=== PATIENT | male | born 1955 | race Caucasian/White ===

== ENCOUNTER → 2017-02-11 | Outpatient (CLI) | payer BC ==
[~2017-02-11] MED LIST: SMV20T
--- NOTE | 2017-02-11 08:43 | Diagnostic Imaging Report ---
PROCEDURE: CT urinary tract, rule out kidney stone. TECHNIQUE: Multiple contiguous axial images were obtained through the abdomen and pelvis without the use of intravenous contrast. INDICATION: Left flank pain. Hematuria. FINDINGS: The lung bases appear clear. The liver, the spleen, the gallbladder, the pancreas and the adrenal glands appear unremarkable. The abdominal aorta is normal in caliber. No paraaortic significantly enlarged lymph nodes are seen. There is a 2 mm nonobstructive stone in the mid right kidney. No hydronephrosis. The urinary bladder wall is minimally thickened. This could relate to mild cystitis or postobstructive changes. There is a tiny periumbilical fat-containing hernia. The colon demonstrates diverticulosis. No diverticulitis. The appendix is normal. The prostate is mildly enlarged at 5 cm in transverse dimension. Significant free fluid or fluid collection in the abdomen or pelvis seen. The osseous structures demonstrate mild degenerative changes in the lumbar spine and SI joints. IMPRESSION: 1. No urinary tract stones or hydronephrosis. 2. Mild urinary bladder wall thickening which could relate to cystitis or postobstructive changes. 3. Tiny fat-containing periumbilical hernia. 4. A few colonic diverticulosis. No diverticulitis. Dictated by: Dictated on workstation # [id number]
== END ==
LOC: RAD 07:39
PROVIDERS: ATTEND Family Medicine
DX: K42.9 Umbilical hernia without obstruction or gangrene (principal); K57.30 Diverticulosis of large intestine without perforation or abscess without bleeding; R31.9 Hematuria, unspecified
CPT/HCPCS: 74176

== ENCOUNTER 2020-05-26 08:50 | Emergency (ER) | payer BC, MEDICAID, MEDICARE ==
[~2020-05-26] VITALS: Ht 182 cm; Wt 101.0 kg
--- NOTE | 2020-05-26 09:38 | ED Cough/URI ---
General Chief Complaint: Cough/Cold/Flu Symptoms Stated Complaint: SAVAGE FEVER ACHES Source: patient Exam Limitations: no limitations History of Present Illness Date Seen by Provider: May 26, 2020 Time Seen by Provider: 09:30 Initial Comments Patient is a 65-year-old male who presents to the emergency department today with a chief complaint of fevers, body aches, chills, just not feeling well. Patient states that he was around his grandson over [place] who later this last week tested positive for coronavirus. Patient symptoms started on Friday the . Patient denies any loss of taste or smell. He states his cough is dry nonproductive. He has had a slight runny nose. No sore throat no earaches. No GI or symptoms but slightly decreased appetite. Patient endorses headache as well. Is concerned about developing pneumonia. Has not taken any Tylenol today. All other review of systems reviewed and negative except as stated. Timing/Duration: week Severity/Quality: dry cough Associated Symptoms: cough, fever/chills, headache, nasal drainage Allergies and Home Medications Allergies Coded Allergies: No Known Drug Allergies (Verified Allergy, Unknown, 07/05/09) Patient Home Medication List Home Medication List Reviewed: Yes Review of Systems Review of Systems Constitutional: see HPI EENTM: nose congestion Respiratory: cough Cardiovascular: no symptoms reported Gastrointestinal: no symptoms reported Genitourinary: no symptoms reported Musculoskeletal: no symptoms reported Skin: no symptoms reported All Other Systems Reviewed Negative Unless Noted: Yes Past [id number]-[id number] Hx Patient Social History Alcohol Use: Occasionally Uses Recreational Drug Use: No Smoking Status: Never a Smoker Recent Foreign Travel: No Contact w/Someone Who Travel: No Recent Hopitalizations: Yes Physical Abuse: No Sexual Abuse: No Mistreated: No Fear: No Past Medical History Surgeries: Yes (T&A,DISCECTOMY,LEFT WRIST, lumbar sx, r knee scope) Orthopedic Respiratory: Yes Sleep Apnea Cardiac: Yes High Cholesterol Neurological: No Reproductive Disorders: No Genitourinary: No Gastrointestinal: Yes Ulcer Endocrine: Yes (NODULE ON THYROID TO BE BX THIS WEEK) Psychosocial: No Integumentary: No Blood Disorders: No Physical Exam Vital Signs - First Documented 05/26/20 05/26/20 09:23 09:38 Temp 37.6 Pulse 96 Resp 18 B/P (MAP) 140/82 (101) Pulse Ox 95 O2 Delivery Room Air Capillary Refill : Height: 6'0.00" Weight: 225lbs. oz. 102.162199li; BMI Method: General Appearance: WD/WN, no apparent distress Eyes: Bilateral Eye Normal Inspection, Bilateral Eye PERRL, Bilateral Eye EOMI HEENT: PERRL/EOMI, pharynx normal, TM abnormal (R) (Effusion on the right TM) Neck: non-tender, full range of motion, supple Respiratory: lungs clear, normal breath sounds, no respiratory distress, no accessory muscle use Cardiovascular: regular rate, rhythm Gastrointestinal: non tender, soft Extremities: normal range of motion, normal inspection, normal capillary refill Neurologic/Psychiatric: no motor/sensory deficits, alert, normal mood/affect, oriented x 3 Skin: normal color, warm/dry Progress/Results/Core Measures Suspected Sepsis SIRS Temperature: Pulse: Respiratory Rate: Blood Pressure / Mean: Results/Orders Lab Results Laboratory Tests Test 05/26/20 09:35 Range/Units Coronavirus 2019 ([facility]) Positive H Negative Micro Results Microbiology 05/26/20 Influenza Types A,B Antigen ([facility]) - Final, Complete My Orders Orders - ELA SINHA MD Influenza A And B Antigens (05/26/20 09:32) Covid 19 Inhouse Test (05/26/20 09:32) Vital Signs/I&O 05/26/20 05/26/20 09:23 09:38 Temp 37.6 Pulse 96 Resp 18 B/P (MAP) 140/82 (101) Pulse Ox 95 O2 Delivery Room Air Capillary Refill : Progress Note : Time: 09:37 Progress Note 65-year-old presents with a chief complaint of viral symptoms, fevers, chills, poor appetite, headache, runny nose and dry cough. Evaluation today includes a physical exam, flu swab as well as coronavirus test. Patient is afebrile here in the emergency department. He is nontoxic-appearing. Will await this testing and potentially offer the patient the investigational use drug BAM if he is positive for Covid 1029 Discusssed the Bamlanivimab with the patient, discussed risks and benefits of this investigational use drug. Patient verbalizes understanding and wishes to be considered for treatment. Patient meets all the criteria for inclusion. Departure Impression Primary Impression: Coronavirus infection Disposition: 01 HOME, SELF-CARE Condition: Stable Departure-Patient Inst. Decision time for Depature: 10:34 Referrals: MARIBEL HARDING MD (PCP/Family) Primary Care Physician Patient Instructions: Coronavirus Disease 2019 (COVID-19) (DC) Add. Discharge Instructions: Drink lots of fluids to stay well-hydrated. Alternate Tylenol and or ibuprofen for any fevers, body aches or other symptoms. Please follow-up with your primary care doctor. We have placed an order for the Bamlanivimab; you will be contacted regarding infusion of this medication. Please come back to the emergency room if you have any worsening symptoms of shortness of breath, cough, any other emergent concerns. All discharge instructions reviewed with patient and/or family. Voiced understanding. ELA SINHA MD May 26, 2020 09:38
[2020-05-26 10:43] VITALS: BP 137/84
== END 2020-05-26 10:43 | disposition home or self-care (01) ==
LOC: EDUNIT# 08:50 → ER 08:52
DX: U07.1 COVID-19 (principal)
CPT/HCPCS: 87804; 99282; U0002; 87635

== ENCOUNTER → 2020-05-29 | Outpatient (CLI) | payer MEDICARE ==
[~2020-05-29] MED LIST changes: +BAMLANIVIMAB 700 MG in NS 200 ML IV ONE; +EPINEPHrine INJECTION 1 MG/ML AMP IM PRN; +diphenhydrAMINE 50 MG/ML INJ (BENADRYL) IV PRN
[2020-05-29 13:08] VITALS: BP 152/87
[2020-05-29 14:28] VITALS: BP 120/78
[2020-05-29 15:18] VITALS: BP 130/76
== END ==
LOC: INFUSION 12:59
PROVIDERS: ATTEND Emergency Medicine
DX: U07.1 COVID-19 (principal)

== ENCOUNTER → 2021-01-17 | Outpatient (CLI) | payer MEDICARE, OTHER ==
[~2021-01-17] VITALS: Ht 182 cm; Wt 101.0 kg
[~2021-01-17] MED LIST changes: -BAMLANIVIMAB 700 MG in NS 200 ML IV ONE; -EPINEPHrine INJECTION 1 MG/ML AMP IM PRN; -diphenhydrAMINE 50 MG/ML INJ (BENADRYL) IV PRN
[2021-01-17] MEDS: CATHETER FLUSH 10 ML SYR IV PRN (08:22)
[2021-01-17 09:14] VITALS: BP 130/83
[2021-01-17 09:32] VITALS: BP 179/77
--- NOTE | 2021-01-17 12:22 | Cardiology Stress Test Report ---
Stress Test Report Date of Procedure/Referring: Date of Procedure: Jan 17, 2021 PCP Babs Braswell MD Admitting Physician Marielos Hernández MD Indications: HTN Baseline Heart Rate: 61 Baseline Blood Pressure: Blood Pressure Systolic: 179 Blood Pressure Diastolic: 77 Vital Signs Date Time Temp Pulse Resp B/P (MAP) Pulse Ox O2 Delivery O2 Flow Rate FiO2 01/17/21 09:14 65 14 130/83 (99) 97 Room Air Baseline Vital Signs Vital Signs Date Time Temp Pulse Resp B/P (MAP) Pulse Ox O2 Delivery O2 Flow Rate FiO2 01/17/21 09:14 65 14 130/83 (99) 97 Room Air Baseline EKG: Baseline EKG: NSR Summary: After explaining the procedure and details to the patient, he signed the consent and was brought to the stress nuclear laboratory. Patient exercised on standard Juan Carlos protocol, EKG, heart rate and blood pressure were monitored continuously, resting and stress doses of radio tracer were injected, imaging was acquired and reviewed in the short axis, horizontal long axis and vertical long axis views Patient was able to exercise for a total of 10 minutes on Juan Carlos protocol, METs 11.7 Maximum heart rate 152 Maximum blood pressure 206/74 Stress EKG, Minimal nondiagnostic changes Recovery EKG, Return to baseline TID: 1.05 SSS: 0 SDS: 0 EF: 55 Conclusion: 1. Excellent exercise tolerance for a total of 10 minutes on standard Juan Carlos protocol, 11.7 METS, achieving 98% of maximal expected heart rate. 2. Appropriate heart rate response to exercise with hypertensive response to e xercise, peak blood pressure 206/74 return to baseline during recovery 3. Minimal nondiagnostic EKG changes with exercise return to baseline during recovery 4. No significant ischemia or infarction on SPECT images, some diaphragmatic attenuation was noted. 5. Normal left ventricular size, EF 55%. BABS BRASWELL MD Jan 17, 2021 12:22
== END ==
LOC: CARD 08:15
PROVIDERS: ATTEND Internal Medicine Cardiovascular Disease
DX: I10 Essential (primary) hypertension (principal); I25.10 Atherosclerotic heart disease of native coronary artery without angina pectoris
CPT/HCPCS: 78452; 93017; A9502

== ENCOUNTER → 2021-05-21 | Outpatient (CLI) | payer MEDICARE, OTHER ==
--- NOTE | 2021-05-21 16:52 | Diagnostic Imaging Report ---
PROCEDURE: US Thyroid. TECHNIQUE: Multiple Real-time grayscale images were obtained of the thyroid in various projections. INDICATION: Thyroid nodule. COMPARISON: 01/19/2016. FINDINGS: The right and left lobes of the thyroid gland measure 5.1 x 1.3 x 1.7 cm and 5.7 x 1.7 x 1.8 cm, respectively. A nodule at the site of the isthmus measures 1 cm x 0.8 x 0.7 cm and has an overall appearance similar to the previous study. No new mass or periglandular abnormality is identified. Blood flow is unremarkable in appearance. IMPRESSION: Solid-appearing nodule in the isthmus measuring approximately 1 cm in size without evidence of significant growth since the previous exam. Dictated by: Dictated on workstation # [id number]
== END ==
LOC: RAD 15:00
PROVIDERS: ATTEND Otolaryngology Otolaryngology/Facial Plastic Surgery
DX: E04.1 Nontoxic single thyroid nodule (principal)
CPT/HCPCS: 76536